=== PATIENT | male | born 1955 | race Caucasian/White ===

== ENCOUNTER → 2017-09-19 | Outpatient (CLI) | payer BC ==
--- NOTE | 2017-09-19 12:41 | DIAGNOSTIC IMAGING REPORT ---
CHEST 2 VIEWS ROUTINE CLINICAL HISTORY: Cough and wheezing. COMPARISON STUDY: No previous studies for comparison. FINDINGS: Lung volumes are at the upper limits of normal. There is no consolidation or evidence for pulmonary edema. Cardiac size is normal. Mediastinal contours are normal. There is no pneumothorax or pleural effusion. IMPRESSION: No acute cardiopulmonary findings. Electronically signed by: Fausto Spears M.D. 09/19/2017 12:40 PM Dictated Date/Time: 09/19/2017 12:40 PM
== END | disposition home or self-care (01) ==
LOC: C.RAD 12:13
PROVIDERS: ATTEND Internal Medicine
DX: R05 Cough (principal); R06.2 Wheezing

== ENCOUNTER 2022-05-09 05:02 | Observation (INO) ==
--- NOTE | 2022-03-28 14:45 | PAT Medication Instructions ---
Medication Instructions Date of Service March 28, 2022 Home Medications Medication Instructions Recorded atorvastatin 10 mg tablet 10 mg PO DAILY #90 tabs 12/19/21 codeine 10 mg-guaifenesin 100 mg/5 See Rx Instructions .Route 03/02/22 mL oral liquid .COMPLEX PRN cough #473 mL atorvastatin 10 mg tablet 10 mg PO DAILY codeine 10 mg-guaifenesin 100 mg/5 mL oral liquid See Rx Instructions .Route .COMPLEX PRN amlodipine 10 mg-valsartan 160 mg tablet 1 tab PO QAM Continue as directed atorvastatin 10 mg tablet 10 mg PO DAILY DO NOT take the morning of surgery codeine 10 mg-guaifenesin 100 mg/5 mL oral liquid See Rx Instructions .Route .COMPLEX PRN amlodipine 10 mg-valsartan 160 mg tablet 1 tab PO QAM Other Notes NOTHING TO EAT OR DRINK AFTER MIDNIGHT. If you have any questions please call us at [phone] or [phone] or [phone] or [phone]
--- NOTE | 2022-04-02 11:56 | Anesthesiology Consultation ---
Date of Service April 02, 2022 Assessment & Plan (1) Encounter for pre-operative examination: - s/p L TKA 05/02/21 anesthesia post-op note: "...SpO2 would go down to 89 when sleeping. His SpO2 would go up to the high 90s when sitting or walking. He is able to max out the incentive spirometer. The patient states that he feels "great." I evaluated the patient with Dr. King. Dr. King agrees that the patient is stable to go home. We discussed with the patient that he should sleep in a recliner and needs to have someone watch him especially if he takes any narcotic pain pills. The patient agreed with the plan and stated that he has a pulse oximeter at home and that his is a general office worker who will be with him." Reviewed with Dr. Trujillo who advised pt acceptable for outpatient joint pathway. - Patient reports that with remote surgery he felt it took a while to "come out of it" and feel normal again. He also states his throat was "scratched" with remote surgery and was told that they could consider smaller breathing tube in future. No similar issues with multiple subsequent surgeries under general anesthesia per patient. He mentions that he was told most ETT tubes utilized in current times are smaller than in the past. - L TKA SAB L3-L4 1 attempt + PNB. - Outpatient joint assessment: Patient is currently scheduled for inpatient pathway. If re-evaluated pending system levels during current pandemic/surgeon requests outpatient pathway, patient is acceptable candidate for outpatient joint program from anesthesia standpoint pending tyler-operative course and surgeon's office assessment of pt motivation/support/completion of same day joint program preop requirements. Pt states would have same post-op support as with L TKA. Chart Review Chart Review: Acceptable Risk for Surgery and Patient seen in Pre Admission Testing Teaching & Discussion Pre-Anesthesia Teaching/Discussion Notes: Instructed NPO after midnight before surgery, except medications with 15 cc of water. Medication instructions provided according to the PAT guidelines. History Surgery Operation Date: 05/09/22 09:25 Proposed Procedures p Right Total Knee Arthroplasty - yT Mueller DO Height/Weight Height: 5 ft 10 in Weight: 115.1 kg Allergies Allergy/AdvReac Type Severity Reaction Status Date / Time No Known Allergies Allergy Verified 06/16/21 15:02 Medications Home Medications Medication Instructions Recorded Confirmed Last Taken atorvastatin 10 mg tablet 10 mg PO DAILY #90 tabs 12/19/21 03/28/22 Unknown amlodipine 10 mg-valsartan 160 mg 1 tab PO QAM 03/28/22 03/28/22 Unknown tablet Past Medical History Medical History (Updated 04/02/22 @ 12:06 by Yady Redman PA-C) ACL tear right knee, removal GERD (gastroesophageal reflux disease) occasional with specific food triggers, managed with prn Pepcid, stable per pt History of COVID-19 cough RICHARDSON, fever, sore throat, no hospitalization, continues to have cough; was treated w/ paxlovid Hyperlipidemia Hypertension controlled, stable per pt Lyme disease hx Obesity Tear of meniscus of knee joint bilateral Patient denies h/o stroke, seizures, heart attack, heart failure, DM, blood clots or blood transfusions. Exercise / Class Metabolic Activity II 4-5 Yardwork/Stairs/Walk up hill (denies CP or SOB with 1 FOS) Past Family History Family History Denies family history of Ovarian cancer Prostate cancer Myocardial infarction Breast cancer Colorectal cancer Past Surgical History Surgical History (Updated 04/02/22 @ 11:54 by Yady Redman PA-C) Hx of anterior cruciate ligament surgery left TKA SAB L3-L4 1 attempt + PNB. Hx of bilateral cataract extraction Hx of colonoscopy Hx of tonsillectomy Past Anesthesia History No Family Hx of Anesthesia Complications and Other (O2 desaturation to 89% when sleeping per post-op note by Dr. Ashlyn Barragan, felt to be safe for same day discharge) History of PONV No Hx of Motion Sickness and History of PONV (denies needing scop patch) Social History Smoking Status: Never smoker Do You Dip or Chew Tobacco: No Hx Alcohol Use: Yes (once per week) alcohol intake frequency: other Hx Substance Use: No substance use type: does not use Review of Systems Patient denies chest pain, shortness of breath, dyspnea on exertion, snoring, witnessed apneas, fever, chills, cough, wheezing, or palpitations. Physical Exam Vital Signs Vitals BP 145/83 P 71 SP02 95% on RA RESP 17 Physical Full cervical extension range of motion without pain TMD 3.5 finger breadths Mallampati Score 3 Dentition: intact, caps/crowns, denies chipped or loose teeth, implants or bridges Lungs: normal respiratory effort. Clear throughout to auscultation, no adventitious breath sounds Cardiac: regular rate and rhythm, no murmurs noted Carotid arteries: negative bruit bilat Lab Results Anesthesia Preop Results Results Anesthesia Widget: WBC 6.38 K/ul (4.8-10.8) 04/02/22 Hgb 14.1 g/dl (14.0-18.0) 04/02/22 Hct 41.4 % (40.1-51.0) 04/02/22 Plt 194 K/uL (130-400) 04/02/22 Na 139 mmol/L (136-145) 04/02/22 K 4.3 mmol/L (3.5-5.1) 04/02/22 Cl 104 mmol/L (98-107) 04/02/22 CO2 29 mmol/L (21-32) 04/02/22 BUN 14 mg/dl (6-23) 04/02/22 Creat 0.96 mg/dl (0.6-1.4) 04/02/22 Glucose Level 102 mg/dl (70-99(Fasting)) H 04/02/22 PT 10.7 Seconds (9.0-12.0) 04/02/22 PTT 29.2 Seconds (21.0-31.0) 04/02/22 INR 1.0 (0.9-1.1) 04/02/22 HA1c 5.8 % (4.5-5.6) H 04/02/22 Urine Color Dark Yellow 04/02/22 Urine Appearance Clear (Clear) 04/02/22 Urine pH 5.5 (4.5-7.5) 04/02/22 Urine Specific [place] 1.038 (1.000-1.030) H 04/02/22 Urine Protein 1+ (Negative) H 04/02/22 Urine Glucose (UA) Negative (Negative) 04/02/22 Urine Ketones Trace (Negative) H 04/02/22 Urine Blood Negative (Negative) 04/02/22 Urine Nitrite Negative (Negative) 04/02/22 Urine Bilirubin Negative (Negative) 04/02/22 Urine Urobilinogen Negative (Negative) 04/02/22 Urine Leukocyte Esterase Trace (Negative) H 04/02/22 Urine WBC (Auto) 1-5 /hpf (0-5) 04/02/22 Urine RBC (Auto) 0-4 /hpf (0-4) 04/02/22 Urine Hyaline Casts (Auto) 5-10 /lpf (0-5) H 04/02/22 Urine Epithelial Cells (Auto) 10-20 /lpf (0-5) H 04/02/22 Urine Bacteria (Auto) Negative (Negative) 04/02/22 Blood Type O Positive 04/02/22 Antibody Screen NEGATIVE 04/02/22 Testing Electrocardiogram Date: 06/13/21 NSR, rate 76 bpm Chest X-Ray Date: 06/13/21 No acute process COVID-19 Risk Screen Screening Information COVID-19 Screen Date: 04/02/22 Exposure 21 Days Family/Household +COVID Last 21 Days: No Exposure 10 Days Any COVID Exposure Last 10 Days: No Symptoms Last 10 Days Experienced COVID Sx Last 10 Days: No + COVID 0-90 Days COVID + in Last 0-90 Days: Yes + COVID Test 0-10 Day: No + COVID Test 11-90 Day: No
--- NOTE | 2022-04-20 12:41 | History & Physical Report ---
Date of Service April 20, 2022 date of surgery: 05/09/22 Procedure: Right Total Knee Arthroplasty Surgeon: Ty Mueller Assessment & Plan (1) Arthritis of right knee: Plan: Further care discussed with patient and at this point in time has failed conservative measures and would like to proceed with a right total knee replacement. Plan on discharge will be home with home health physical therapy. DVT prophylaxis with TEDs, SCDs and will also place on ASA 81mg po bid x 1 month post op. Patient will have follow up appointment in our office two weeks post op for re-evaluation. Patient otherwise has no other questions or concerns. The risks and benefits have been discussed including, but not limited to, risk of infection, nerve injury, stiffness, loss of motion, failure to improve, etc. Reasonable outcomes and options of treatment were discussed. An explanation of appropriate alternatives to the procedure that may be advantageous were discussed and their risks and benefits, as well as the risks and benefits of not proceeding with treatment. I offered to answer any additional inquiries concerning the treatment involved. All the patient's questions were answered. The patient is agreeable, understanding of the treatment plan and alternatives, and wishes to proceed with the treatment plan. History of Present Illness Chief Complaint: Right knee pain Primary Care Provider: Cheryl Spears MD Helder is a 66 year old male who complains of right knee pain, presents for pre-op evaluation prior to a right total knee replacement by Dr Mueller at [facility]. He complains of pain, decreased range of motion and stiffness in his right knee. Currently the patient states that the symptoms are moderate-severe and rated 6/10. His pain is described as aching, sharp and throbbing. His symptoms are aggravated by ascending stairs, daily activities, first steps while awake walking. Prior NSAIDs include IBU and Aleve and also uses Tylenol for pain. recently underwent left TKA and has recovered well. Allergies Allergy/AdvReac Type Severity Reaction Status Date / Time No Known Allergies Allergy Verified 06/16/21 15:02 Home Medications Medication Instructions Recorded Confirmed Type atorvastatin 10 mg tablet 10 mg PO DAILY #90 tabs 12/19/21 03/28/22 Rx amlodipine 10 mg-valsartan 160 mg 1 tab PO QAM 03/28/22 03/28/22 History tablet Past Med/Surg History Medical History ACL tear right knee, removal GERD (gastroesophageal reflux disease) occasional with specific food triggers, managed with prn Pepcid, stable per pt History of COVID-19 cough RICHARDSON, fever, sore throat, no hospitalization, continues to have cough; was treated w/ paxlovid Hyperlipidemia Hypertension controlled, stable per pt Lyme disease hx Obesity Tear of meniscus of knee joint bilateral Surgical History Hx of anterior cruciate ligament surgery left TKA SAB L3-L4 1 attempt + PNB. Hx of bilateral cataract extraction Hx of colonoscopy Hx of tonsillectomy Family History Denies family history of Ovarian cancer Prostate cancer Myocardial infarction Breast cancer Colorectal cancer Social History Smoking Status: Never smoker Second Hand Exposure: No; Hx Alcohol Use: Yes (once per week) Hx Substance Use: No Preferred Language: Serbian Communication Ability: Effective Visual Impairment: No Limitations Hearing Ability: Normal Airport Utility Worker Required: No Beliefs That Will Affect Care: None Current Living Situation: Spouse current occupational status: employed Feels Safe at Home: Yes Childhood Exposure to Second-Hand Smoke: No Dental Care, Regularly: Yes Physical Activity Frequency: 3-4 Times per Week Assistive Devices: None Review of Systems Review of Systems: All systems reviewed & are unremarkable except as noted in HPI & below Constitutional: no fever, no chills and no sweats Respiratory: no cough and no dyspnea Cardiovascular: no chest pain, no dyspnea and no orthopnea Gastrointestinal: no abdominal pain, no nausea and no vomiting Musculoskeletal: as per Subjective / HPI Physical Exam Physical Exam: HT: 5ft 10in WT: 115.1 kg BP: 120/70 Constitutional: WD/WN, vitals as above no acute distress Respiratory: normal respiratory effort, lungs clear to auscultation no respiratory distress, no labored breathing and does not use accessory muscles Cardiovascular: RRR, no murmur, no edema Gastrointestinal (Abdomen): normal bowel sounds, soft, nontender, no hepatosplenomegaly Musculoskeletal: Knee: + effusion (+1 effusion), + surgical incision (well healed portals), + limited ROM of knee (ROM 0/3/110), + knee ROM with crepitation, + joint line tenderness (medial joint line) and + Liz's sign positive; no deformity, no skin erythema, no ecchymosis, no valgus laxity, no varus laxity, anterior drawer test negative, Primitivo's sign negative and pivot shift test negative Results & Data Results & Data ([facility]) Diagnostic Findings Right Knee X-ray: Right knee series showing advanced degenerative changes to the right knee, narrowing of the medial compartment and patello-femoral joint with patellar spurring noted, findings showing joint space narrowing of the medial compartment and patello-femoral joint, osteophyte formation and subchondral sclerosis noted. overall varus alignment. no acute bony pathology noted.
[2022-05-09] MEDS ORDERED: CeleBREX 200 MG CAP PO SCH (06:00)
[2022-05-09] MEDS ORDERED: TRANEXAMIC ACID 1,000 MG **IV Intra-op IV SCH (06:00)
[2022-05-09] MEDS ORDERED: METOCLOPRAMIDE HCL 10 MG TABLET PO SCH (06:00)
[2022-05-09] MEDS ORDERED: LR 500ML BOLUS, THEN 15ML/HR IV SCH (06:00)
[2022-05-09] MEDS ORDERED: GABAPENTIN 300 MG CAP PO SCH (06:00)
[2022-05-09] MEDS ORDERED: dexAMETHasone 4 MG TAB PO SCH (06:00)
[2022-05-09] MEDS ORDERED: ceFAZolin 2000MG 2,000 MG/15 ML SYR IV SCH ×2 (06:00→16:00)
[2022-05-09] MEDS ORDERED: TRANEXAMIC ACID 1,000 MG **IV Pre-op IV SCH (06:00)
[2022-05-09] MEDS ORDERED: FAMOTIDINE 20 MG TAB PO SCH (06:00)
[2022-05-09] MEDS ORDERED: ACETAMINOPHEN 500 MG TAB PO SCH ×2 (06:00→14:00)
[2022-05-09] MEDS ORDERED: ROPIVACAINE 0.5% HCL/PF 150 MG, BUPIVACAINE 0.75% MPF 20 ML, EPINEPHrine 30MG/30ML (OR ... INSTIL SCH (06:00)
[2022-05-09] MEDS ORDERED: BUPIVACAINE 0.5 % 5 MG/1 ML PF 10ML VIAL ONE (06:24)
[2022-05-09] MEDS ORDERED: DEXAMETHASONE SOD INJ 4 MG/ML VIAL ONE (06:24)
[2022-05-09] MEDS ORDERED: EPINEPHrine INJ 1 MG/ML AMP ONE (06:24)
[2022-05-09] MEDS ORDERED: BUPIVACAINE 0.25% 30 ML VIAL ONE (06:24)
[2022-05-09] MEDS ORDERED: ORTHO JOINT ANESTHETIC ONE (06:41)
[2022-05-09] MEDS ORDERED: fentaNYL citrate 100 MCG/2 ML VIAL ONE (06:48)
[2022-05-09] MEDS ORDERED: PROPOFOL IV EMULSION 10 MG/ML 20 ML VIAL IV ONE ×3 (06:49)
[2022-05-09] MEDS ORDERED: MIDAZOLAM HCL 1 MG/ML 2ML VIAL ONE (06:49)
[2022-05-09] MEDS ORDERED: fentaNYL citrate 100 MCG/2 ML VIAL IV PRN (06:56)
[2022-05-09] MEDS ORDERED: ATROPINE SULFATE 0.1 MG/ML 10ML SYR IV PRN (06:56)
[2022-05-09] MEDS ORDERED: ONDANSETRON INJ 2 MG/ML 2 ML VIAL IV PRN ×3 (06:56→23:05)
[2022-05-09] MEDS ORDERED: ePHEDrine sulfate 50 MG/ML AMP IV PRN (06:56)
--- NOTE | 2022-05-09 07:44 | History & Physical Bridge Note ---
Date of Service May 09, 2022 History & Physical Bridge Note I have examined the patient, reviewed the History & Physical and in the interval since the performance of the History & Physical I have noted the following changes of clinical significance: no changes noted
--- NOTE | 2022-05-09 09:05 | Operative Report ---
Post Operative Report Pre & Post Diagnosis Operation Date: 05/09/22 07:00 Pre-Op Diagnosis: Unilateral Primary Osteoarthritis, Right Knee Post-Op Diagnosis: Unilateral Primary Osteoarthritis, Right Knee I identified the patient and participated in the time-out.: Yes Procedure Operation Date: 05/09/22 07:00 Actual Procedures p Right Total Knee Arthroplasty(Right) utilizing femur 12 standard tibia G polytwelve patella 31 oval- Ty Mueller DO Surgeon Ty Mueller DO [employer] Patcher Arturo CARVER Estimated Blood Loss 5 Findings Consistent with Post-Op Diagnosis Patient presents with severe end-stage tricompartmental degenerative joint disease right knee varus alignment eburnated [id number] medial lateral osteophytes subchondral cystic changes marginal osteophytes with moderate to large effusion Specimens Bone and cartilage Drains Medium bore Hemovac Anesthesia Type MAC Spinal Regional Complications none Disposition Accompanied Patient To Recovery: No Disposition: Recovery Room Indications Patient's failed all attempts at conservative management clinic physical therapy anti-inflammatories relative rest activity modification corticosteroid injection viscosupplementation above intraoperative findings were noted Description of Procedure After proper prepping and draping of the Right lower extremity anterior midline incision was made over the region of the extensor extensor mechanism after meticulous hemostasis was obtained and maintained in subcutaneous tissues a m edial parapatellar incision was made The patella was subluxed lateralward the medial lateral gutter were cleaned from any hypertrophic synovitis and scar tissue of the distal femoral block was placed and the distal femoral osteotomy cut was made subsequently the chamfers anterior and posterior osteotomy cuts were made utilizing the 4-in-1 block the tibia was subsequently subluxed anteriorward medial and ateral meniscal remnants were excised in their entirety remnants of the anterior and posterior cruciate ligaments were excised in their entirety excellent exposure of the proximal tibia was obtained the tibial osteotomy guide was placed on the proximal tibial osteotomy cut was made once again the knee was irrigated with copious amounts of sterile saline solution the patella was subsequently everted lateralward thickened scar tissue around the patella was removed the patella was subsequently cut utilizing a freehand technique and was drilled prepared for final preparation and placement of patella socially flexion-extension gaps were checked and the equal and symmetric trials were placed to the appropriate femoral and tibial trials with poly-spacer being placed for equal flexion and extension gaps and full range of motion including extension to 0 and flexion to 140 the trial components after having been taken to recovery range of motion was subsequently removed meticulous hemos tasis was obtained and maintained subsequently a knee block injection of joint cocktail including ropivacaine 0.5% 150 mg. Bupivacaine 0.5% epinephrine 1- 200,030 mL's toradol 30 mg dexamethasone 4 mg ketamine 10 mg clonidine 100 micrograms normal saline solution 30 mg was infiltrated into the soft tissues of the posterior knee medial lateral gutters and periosteal synovium special attention was paid to protect neurovascular structures at all times subsequently trial components having been removed the knee was irrigated with sterile saline solution. debris was removed the proximal tibia was subsequently prepared and was made ready for the placement of the tibial component tibial component was also cemented and tamped into position the femoral component was subsequently placed and cemented in the position the patellar component was subsequently cemented in position because hemostasis once again obtained and maintained wound having been thoroughly irrigated with debridement and debridement lavage was performed as well as a medial parapatellar incision closed with #1 Vicryl in interrupted fashion subcutaneous was closed with #2 Vicryl skin was closed with skin clips. PA-C was necessary for prepping and drapping as well as wound closure of deep fascia Sub cutaneous tissue and skin and was necessary for the case. A sterile compressive dressing was placed patient was taken to recovery in stable condition of report dictated by Ervin I attest to the content of the Intraoperative Record and any orders documented therein. Any exceptions are noted below.Due to the complex nature of the procedure, the entire surgery was performed with the operational assistance of Arturo CARVER. The electrician's assistant, under direct supervision, was involved in the actual performance of all aspects of the surgical procedure including hemostasis, tissue retraction and incision, instrument management, patient positioning, and wound closure. I attest to the content of the Intraoperative Record and any orders documented therein. Any exceptions are noted below.
--- NOTE | 2022-05-09 10:38 | Anesthesiology Progress Note ---
Date of Service May 09, 2022 Anesthesia Post Procedure Vital Signs Vital Signs: Temp Pulse Pulse Resp BP Pulse Ox O2 Del Method 05/09/22 10:25 36.5 C 74 20 158/77 H 94 Nasal Cannula 05/09/22 10:15 68 15 150/68 H 95 Nasal Cannula 05/09/22 10:05 70 15 151/70 H 93 Nasal Cannula 05/09/22 09:55 76 19 152/76 H 92 Room Air 05/09/22 09:48 36.6 C 78 16 135/69 96 Oxymask 05/09/22 05:50 36.7 C 74 18 163/91 H 94 Room Air O2 Flow Rate 05/09/22 10:25 2 05/09/22 10:15 2 05/09/22 10:05 2 05/09/22 09:55 05/09/22 09:48 9 05/09/22 05:50 Transfer of Care Handoff Completed per policy Notes Mental Status: alert / awake / arousable Patient Amnestic to Procedure: Yes Nausea / Vomiting: adequately controlled Pain: adequately controlled Airway Patency, RR, SpO2: stable & adequate BP & HR: stable & adequate Hydration State: stable & adequate Neuraxial Anesthesia: was administered and sensory block is resolving Anesthetic Complications: no major complications apparent and Pt Satisfied with anesthetic care
[2022-05-09] MEDS ORDERED: MAGNESIUM HYDROXIDE SUSP 30 ML UDC PO PRN (11:06)
[2022-05-09] MEDS ORDERED: oxyCODONE HCL IR 5 MG TAB (IMMEDIATE RELEASE) PO PRN ×2 (11:06→22:51)
[2022-05-09] MEDS ORDERED: SODIUM CHLORIDE 0.9% 1000ML 1,000 ML IV SCH (11:06)
[2022-05-09] MEDS ORDERED: NALOXONE HCL 0.4 MG/1 ML VIAL/CARP IV PRN (11:06)
[2022-05-09] MEDS ORDERED: bisacodyL 10 MG SUPP PR PRN (11:06)
[2022-05-09] MEDS ORDERED: HYDROmorphone INJ 0.5 MG/0.5 ML SYR IV PRN (11:06)
[2022-05-09] MEDS ORDERED: diphenhydrAMINE 50 MG/ML VIAL IV PRN (11:06)
[2022-05-09] MEDS ORDERED: PNEUMOCOCCAL POLYSACCHARIDES 25 MCG/0.5 ML VIAL/SYR IM ONE (11:16)
--- NOTE | 2022-05-09 11:32 | XRay Report ---
RIGHT KNEE 2 VIEWS History: Right total knee arthroplasty. Degenerative arthritis. Postop. FINDINGS: The patient is status post a right total knee arthroplasty. The hardware is intact. No frac ture or dislocation. Surgical drains are in place. IMPRESSION: Right total knee arthroplasty. No evidence for hardware complication. ACT 112: Negative or not required by law. Electronically signed by: Dave Appiah M.D. 05/09/2022 11:31 AM
[2022-05-09] MEDS ORDERED: DOCUSATE SODIUM 100 MG CAP PO SCH (21:00)
[2022-05-09] MEDS ORDERED: SENNA 8.6 MG TAB PO SCH (21:00)
[2022-05-09] MEDS ORDERED: MoRPHine SULFATE 2 MG/ML CARP IV PRN (23:01)
[2022-05-09] MEDS ORDERED: ACETAMINOPHEN 325 MG TAB PO PRN (23:07)
[2022-05-09] MEDS: oxyCODONE HCL IR 5 MG TAB (IMMEDIATE RELEASE) PO PRN (23:26)
[2022-05-10] MEDS: ceFAZolin 2000MG 2,000 MG/15 ML SYR IV SCH ×2 (00:04→03:56)
--- NOTE | 2022-05-10 06:52 | Orthopedic Progress Note ---
Date of Service May 10, 2022 Assessment & Plan (1) History of total right knee replacement: Plan: POD #1 s/p Right TKA pt/ot dvt proph with DONAVON/SCD/ASA plan for d/c home with HHPT after PT today Admission and Anticipated Discharge Date Admission Date: May 09, 2022 Supervising Physician Co-Signing Physician Notes Patient seen and examined. Agree with WEN Pennington's note as above. Patient is doing well. Has been ambulating in the hallways. Pain is well controlled. He is making good progress on his knee range of motion with therapy. Plan for discharge home today. Subjective POD #1 s/p Right TKA Review of Systems Constitutional: no fever, no chills and no sweats Respiratory: no cough and no dyspnea Cardiovascular: no chest pain and no dyspnea Gastrointestinal: no abdominal pain, no nausea and no vomiting Physical Exam Physical Exam: Vital Signs Temp 36.5 C 05/10/22 04:00 Pulse 80 05/10/22 04:00 Resp 18 05/10/22 04:00 BP 136/73 05/10/22 04:00 Pulse Ox 97 05/10/22 04:00 O2 Del Method 05/10/22 04:00 O2 Flow Rate 2 05/09/22 14:05 Intake & Output 05/09/22 05/09/22 05/10/22 06:59 18:59 06:59 Intake Total 2100 / 3100 1000 / 3100 Output Total 605 / 2230 1625 / 2230 Balance 1495 / 870 -625 / 870 Weight 117.8 kg Intake: IV 1100 / 1100 Lactated Ringe r's 1,000 ml @ 15 0 / 0 mls/hr IV .Q24 H [facility] Rx#: [id number] Sodium Chlorid e 0.9% 1000ML 1, 1000 / 1000 000 ml @ 100 m ls/hr IV .Q10H PHIL Rx#:[id number] Tranexamic Aci d / 0.7% NaCl 1, 100 / 100 000 mg In 100 ml @ 600 mls/hr IV TODAY@0600 [facility]IL Rx#:[id number] IV Perioperative 1000 / 1000 Oral 1000 / 1000 Output: Urine 600 / 2150 1550 / 2150 Estimated Blood Loss 5 / 5 Drain Output 0 / 75 75 / 75 Right Knee Hem ovac #1 0 / 75 75 / 75 Other: Weight Measureme nt Method Standing Scale Musculoskeletal: Right Leg: NVDI, calf SNT, negative maria del carmen sign. DP palpable, able to wiggle toes/ankle movement without difficulty. dressing clean dry and intact. Results & Data ([facility]) Vital Signs (Past 12 Hours) Vital Signs Temp Pulse Resp BP BP Pulse Ox O2 Del Method 05/10/22 04:00 36.5 C 80 18 136/73 97 Room Air 05/09/22 22:49 36.5 C 75 20 143/73 H 95 Room Air 05/09/22 20:24 36.8 C 79 20 149/72 H 94 Room Air Diagnostic Findings Impressions Knee X-Ray 05/09/22 10:19 RIGHT KNEE 2 VIEWS History: Right total knee arthroplasty. Degenerative arthritis. Postop. FINDINGS: The patient is status post a right total knee arthroplasty. The hardware is intact. No fracture or dislocation. Surgical drains are in place. IMPRESSION: Right total knee arthroplasty. No evidence for hardware complication. ACT 112: Negative or not required by law. Electronically signed by: Dave Appiah M.D. 05/09/2022 11:31 AM
[2022-05-10] MEDS: oxyCODONE HCL IR 5 MG TAB (IMMEDIATE RELEASE) PO PRN (08:28)
[2022-05-10] MEDS ORDERED: ATORVASTATIN 10 MG TAB PO SCH (09:00)
[2022-05-10] MEDS ORDERED: VALSARTAN 80 MG TAB PO SCH (09:00)
[2022-05-10] MEDS ORDERED: ASPIRIN 81 MG ECTAB PO SCH (09:00)
[2022-05-10] MEDS ORDERED: MULTIVITAMIN TAB PO SCH (09:00)
[2022-05-10] MEDS ORDERED: amLODIPine BESYLATE 5 MG TAB PO SCH (09:00)
[2022-05-10] MEDS ORDERED: AMLODIPINE VALSARTAN PO SCH (09:00)
--- NOTE | 2022-05-11 18:41 | Discharge Summary ---
Date of Service May 11, 2022 Admission HPI Per Admitting Provider Bret is a 66 year old male who complains of right knee pain, presents for pre- op evaluation prior to a right total knee replacement by Dr Florentino at [facility]. He complains of pain, decreased range of motion and stiffness in his right knee. Currently the patient states that the symptoms are moderate-severe and rated 6/10. His pain is described as aching, sharp and throbbing. His symptoms are aggravated by ascending stairs, daily activities, first steps while awake walking. Prior NSAIDs include IBU and Aleve and also uses Tylenol for pain. recently underwent left TKA and has recovered well. Admission Exam Per Admitting Provider Physical Exam: HT: 5ft 10in WT: 115.1 kg BP: 120/70 Constitutional: WD/WN, vitals as above no acute distress Respiratory: normal respiratory effort, lungs clear to auscultation no respiratory distress, no labored breathing and does not use accessory muscles Cardiovascular: RRR, no murmur, no edema Gastrointestinal (Abdomen): normal bowel sounds, soft, nontender, no hepatosplenomegaly Musculoskeletal: Knee: + effusion (+1 effusion), + surgical incision (well healed portals), + limited ROM of knee (ROM 0/3/110), + knee ROM with crepitation, + joint line tenderness (medial joint line) and + Liz's sign positive; no deformity, no skin erythema, no ecchymosis, no valgus laxity, no varus laxity, anterior drawer test negative, Primitivo's sign negative and pivot shift test negative Principal Diagnosis Right knee osteoarthritis Discharge Data Allergies Allergy/AdvReac Type Severity Reaction Status Date / Time No Known Allergies Allergy Verified 05/09/22 05:39 Procedures Performed Operation Date: 05/09/22 07:00 Actual Procedures p Right Total Knee Arthroplasty(Right) - Ty Florentino DO Ordered Studies 05/09/22 05:00 US - OR guided needle placemen Routine Hospital Course (1) Arthritis of right knee: Plan Patient:BRET LANZA Admit Date:05/09/22 MR#:[id number] Att Phy:Ty Florentino,D.OTali Acct ID:[id number] Brie Phy:Cheryl Spears MD Date:1955 Fam Phy: Age:66 Location:3E Sex:M Room/Bed:E311-1 cc: ~ *NOTICE TO RECEIVING [employer]/AGENCY This information is strictly Confidential and protected under [place] law. [place] law prohibits you from making any further disclosure of this information unless further disclosure is expressly permitted by the written consent of the person to whom it pertains or is authorized by law. A general authorization for the release of medical or other information is not sufficient for this purpose. Hospital accepts no responsibility if the information is made available to any other person, INCLUDING THE PATIENT. Date of Service May 10, 2022 Assessment & Plan (1) History of total right knee replacement: Plan: POD #1 s/p Right TKA pt/ot dvt proph with DONAVON/SCD/ASA plan for d/c home with HHPT after PT today Admission and Anticipated Discharge Date Admission Date: May 09, 2022 Supervising Physician Co-Signing Physician Notes Patient seen and examined. Agree with WEN Pennington's note as above. Patient is doing well. Has been ambulating in the hallways. Pain is well controlled. He is making good progress on his knee range of motion with therapy. Plan for discharge home today. Subjective POD #1 s/p Right TKA Review of Systems Constitutional: no fever, no chills and no sweats Respiratory: no cough and no dyspnea Cardiovascular: no chest pain and no dyspnea Gastrointestinal: no abdominal pain, no nausea and no vomiting Physical Exam Physical Exam: Vital Signs Temp 36.5 C 05/10/22 04:00 Pulse 80 05/10/22 04:00 Resp 18 05/10/22 04:00 BP 136/73 05/10/22 04:00 Pulse Ox 97 05/10/22 04:00 O2 Del Method 05/10/22 04:00 O2 Flow Rate 2 05/09/22 14:05 Intake & Output 05/09/22 05/09/22 05/10/22 06:59 18:59 06:59 Intake Total 2100 / 3100 1000 / 3100 Output Total 605 / 2230 1625 / 2230 Balance 1495 / 870 -625 / 870 Weight 117.8 kg Intake: IV 1100 / 1100 Lactated Ringe r's 1,000 ml @ 15 0 / 0 mls/hr IV .Q24 H PHIL Rx#: [id number] Sodium Chlorid e 0.9% 1000ML 1, 1000 / 1000 000 ml @ 100 m ls/hr IV .Q10H PHIL Rx#:[id number] Tranexamic Aci d / 0.7% NaCl 1, 100 / 100 000 mg In 100 ml @ 600 mls/hr IV TODAY@0600 PHIL Rx#:[id number] IV Perioperative 1000 / 1000 Oral 1000 / 1000 Output: Urine 600 / 2150 1550 / 2150 Estimated Blood Loss 5 / 5 Drain Output 75 / 75 Right Knee Hem ovac #1 75 / 75 Other: Weight Measureme nt Method Standing Scale Musculoskeletal: Right Leg: NVDI, calf SNT, negative maria del carmen sign. DP palpable, able to wiggle toes/ankle movement without difficulty. dressing clean dry and intact. Results & Data ([facility]) Vital Signs (Past 12 Hours) Vital Signs Temp Pulse Resp BP BP Pulse Ox O2 Del Method 05/10/22 04:00 36.5 C 80 18 136/73 97 Room Air 05/09/22 22:49 36.5 C 75 20 143/73 H 95 Room Air 05/09/22 20:24 36.8 C 79 20 149/72 H 94 Room Air Diagnostic Findings Impressions Knee X-Ray 05/09/22 10:19 RIGHT KNEE 2 VIEWS History: Right total knee arthroplasty. Degenerative arthritis. Postop. FINDINGS: The patient is status post a right total knee arthroplasty. The hardware is intact. No fracture or dislocation. Surgical drains are in place. IMPRESSION: Right total knee arthroplasty. No evidence for hardware complication. ACT 112: Negative or not required by law. Electronically signed by: Dave Appiah M.D. 05/09/2022 11:31 AM Total Time Total Time Spent Total Time Spent (In Minutes): 10 Discharge Plan Discharge Items Patient Disposition: Home - Home Health Services Reason For Visit: Unilateral Primary Osteoarthritis, Right Knee Discharge Diagnosis: Right knee osteoarthritis Activity: Per Instructions section Weightbearing Comment: as tolerated with walker Non-emergency contact: Surgeon Call non-emergency contact if: you have any medication questions, your pain is not controlled, your temperature is above 101.5, your wound has increased redness and your wound has increased drainage Follow-up/Referrals: Cheryl Spears MD [Primary Care Provider] - Ty Florentino DO [Surgeon] - (Follow up with Dr. Folrentino in 2 weeks from the day of your surgery for your first post operative appointment. ) Diet: Regular Addtl Attending Provider Instructions: ACTIVITY RECOMMENDATIONS: SELF CARE INSTRUCTIONS AFTER TOTAL KNEE REPLACEMENT A. You may need to continue a physical therapy program after discharge from the hospital. There are several options available to you. Your doctor will assist you in selecting the best one for you. 1. An out-patient facility 2 to 3 times a week for therapy or home therapy. 2. Continue working on all exercises taught to you in the hospital. Your goals should be to increase bending of your knee to 90 degrees and beyond and to fully straighten your knee. B. You may progress at your own pace from walking with a walker or crutches to a cane; then to no assistive devices. C. Make walking a part of your daily routine. Be up as much as comfortable with rest periods throughout the day. Rest with leg elevation is very important. Use the ice wrap frequently for the first 3-4 weeks. D. There are no restrictions on activities. You may ride in a car, shop, participate in marketing intern and all social activities. E. Wear the long elastic stockings (DONAVON hose) 20 hours a day for 2 weeks after surgery. They can be removed several times a day for laundering and for a bath. F. You may shower, no tub baths until cleared by your doctor. SPECIAL CARE INSTRUCTIONS: VERY IMPORTANT TO READ AND REVIEW A. There are a few signs you need to watch for after you are home. Call [facility] if you notice any of the followin. Increased severe knee pain. Some pain is expected especially when you exercise. 2. Increased swelling in your leg or knee; pain or swelling of the calf muscle in either lower leg. 3. Any fluid drainage from the incision. 4. Shortness of breath or chest pain. B. Please call [facility] at if you have any concerns or questions about your operation or recovery. The doctor or his nurse will return your call promptly. C. You must take antibiotics before dental work, bladder, bowel or other surgery. Your doctor will provide you with a permanent care to carry describing this precaution. IMPORTANT: * REMEMBER TO TAKE ASPIRIN, 81 MG, TWICE DAILY FOR 4 WEEKS UNLESS OTHERWISE DIRECTED. THIS IS YOUR BLOOD THINNER. * HIGH RISK PATIENTS MAY BE PRESCRIBED A STRONGER BLOOD THINNER. THIS WILL BE PROVIDED AT DISCHARGE. * CALL IF INCREASED PAIN, REDNESS, DRAINAGE OR FEVER GREATER THAT 101. * WEAR DONAVON HOSE 20 HOURS PER DAY FOR 2 WEEKS. * CECY Dressing - This is a large suction dressing covering your incision. This will help pull any excess drainage from the wound and allow your incision to heal properly. You may shower with this if you can keep the unit outside of the shower. If any bleeding or leakage is noted please call your doctor's office. This will remain on your incision for 7 days and then should be removed. This can be done yourself or by the home nursing staff if applicable. The entire unit is disposable once removed. Once removed, keep incision clean and dry. If redness or drainage is noted, please call your surgeon. . * After your Cecy Dressing has been removed, please follow wound care instructions below. * DERMABOND Prineo- This is a mesh tape dressing that is covered with glue. It should remain in place until the incision is properly healed, usually 10-14 days. This dressing is designed to naturally slough off. You may trim the excess mesh tape as it peels off. Incision may be briefly wet in a shower. Dry immediately by blotting with a clean, dry towel. Do not bath or swim until instructed by your doctor. Do not scratch, rub, or pick at the dressing. Do not apply any topical ointments or lotions until dressing is completely removed and/or instructed by your doctor. There may be a small piece of suture material at one end of your incision. Do not pull or trim this. If it is bothersome or catching on clothing, you may cover it with a band-aid. FOLLOW UP VISIT: If appointment is not already scheduled: Please call [facility] to make a follow-up appointment for 2 weeks after your surgery at . Pending Studies at Discharge: No Stand-Alone Forms: My Jini, Smoking Cessation Medications and DC Order Prescriptions: New aspirin 81 mg Tablet,Delayed Release (Dr/Ec) 81 mg PO BID 28 Days Qty: 56 0RF oxycodone 5 mg Tablet 5 - 10 mg PO Q6 PRN (Reason: pain) Qty: 30 0RF Rx Instructions: ongoing therapy, supervising dr marcia florentino. max 6 tabs in 24 hours celecoxib [Celebrex] 200 mg capsule 200 mg PO BID 30 Days Qty: 60 0RF cefadroxil 500 mg capsule 500 mg PO BID 14 Days Qty: 28 0RF acetaminophen 500 mg tablet 1,000 mg PO Q8 21 Days Qty: 126 0RF Continued atorvastatin 10 mg tablet 10 mg PO DAILY Qty: 90 3RF amlodipine-valsartan 10-160 mg Tablet 1 tab PO QAM Discharge Orders: Discharge Order (Routine); Ordered 05/10/22 Ordered By: Fernando Pennington Admission Data Admit Date/Time: 05/09/22 10:19 Attending Provider: Ty Florentino Admit Provider: Ty Florentino Primary Care Provider: Cheryl Spears Other Interventions: Discharge Summary Assessment (RN) Last Done: 05/10/22 11:58
== END 2022-05-10 12:44 | disposition home health service (06) ==
LOC: ASU 05:02 → 3E 05:02